=== PATIENT | male | born 1970 | race Caucasian/White ===

== ENCOUNTER 2025-07-12 00:05 | Emergency (ER) | payer SELFPAY ==
--- OUTSIDE RECORDS SUMMARY | 2024-11-30 08:30 | XMS_ITS ---
Author Organization [facility] Address [address] [facility] [place] [address] Care Team Providers Care Gleason Operator Name Role Phone Trung Cramer MD Primary Care Provider Rubén Culver [phone] REASON FOR VISIT 4M F/U PER MARY OV 08/11/24 TD Encounters Encounter Location Date Provider Diagnosis [facility] [address] [place] [address], [place] [address] 11/30/2024 Rubén Cook Plan Of Treatment Next Appt Details Provider Name:Mary finley, 12/24/2025 09:45:00 AM, [address] [place] [address], [place], [address], Provider Name:Rubén Cook , 06/21/2026 01:45:00 PM, [address] [place] [address], [place], [address], Progress Notes * MORRIS PALAFOX RDOB:[birth year] (54 yo M)Acc No.[id number]:11/30/2024 Progress Notes Patient: IDALMIS HANBLU West Provider: Alfonzo Cook MD :1970 A ge:54 Y S ex:Male Date:11/30/2024 Address:[address], [place], [phone] Pcp:Trung Cramer MD Subjective: * Chief Complaints: * 4 M F/U PER MARY OV 08/11/24 TD Billing Information: * Procedure Codes: * Electronic signature of Pricilla Cook MD on 07/12/2025 at 12:15 AM CDT Sign off status: Pending * Provider: Alfonzo Cook MD Date: 0 11/30/2024 Generated for Ab ye/Julia/Foster on: 1 12:15 AM CDT
--- OUTSIDE RECORDS SUMMARY | 2025-01-25 09:20 | XMS_ITS ---
Author Organization [facility] Main Address [place] [address] Care Team Providers Care Head Of Measurement & Insights Name Role Phone GREG MANLEY Primary Care Provider REASON FOR VISIT 6 WK Encounters Encounter Location Date Provider Diagnosis [facility] Main [place] [address] 01/25/2025 GREG MANLEY Plan Of Treatment Next Appt Details Provider Name:EMA ADKINS, 11/07/2025 08:00:00 AM, [address] [place] [address] [place], [address], Progress Notes * Antony LEONARD RDOB:[birth year] (54 yo M)Acc No.[id number]:01/25/2025 Progress Notes Patient: Antony HAN Provider: Jeancarlos MANLEY MD :1970 A ge:54 Y S ex:Male Date:01/25/2025 Address:[address], [id number] Subjective: * Chief Complaints: * 1 . 6 WK. * Medical History: Objective: * Vitals: Assessment: Plan: * Treatment: * Billing Information: * Visit Code: * Procedure Codes: * Electronic signature of DAHLIA MANLEY MD on 07/12/2025 at 12:15 AM CDT Sign off status: Pending * Provider: Jeancarlos MANLEY MD Date: 0 01/25/2025 Generated for Printi ng/Faxing/eTransmitting on: 1 12:15 AM CDT
--- OUTSIDE RECORDS SUMMARY | 2025-06-21 08:45 | XMS_ITS ---
Author Organization [facility] Address [address] [place] [address] Care Team Providers Care Thoroughbred Horse Farm Manager Name Role Phone Trung Cramer MD Primary Care Provider Rubén Culver [phone] Encounters Encounter Location Date Provider Diagnosis [facility] [address] [place] [address], [place] [address] 06/21/2025 Rubén Cook Plan Of Treatment Next Appt Details Provider Name:Mary finley, 12/24/2025 09:45:00 AM, [address] [place] [address], [place], [address], Provider Name:Rubén Cook , 06/21/2026 01:45:00 PM, [address] [place] [address], [place], [address], Progress Notes * MORRIS PALAFOX RDOB:[birth year] (54 yo M)Acc No.[id number]:06/21/2025 Patient: Isamar VILLARREAL MORRIS West Provider: Alfonzo Cook MD :1970 A ge:54 Y S ex:Male Date:06/21/2025 Address:[address], [place], [phone] Pcp:Trung Cramer MD Check In:01:41 PM CSTCheck Nikolas ut:02:31 PM LEATHER SOFTENER Billing Information: * Procedure Codes: * Electronic signature of Pricilla Cook MD on 07/12/2025 at 12:15 AM CDT Sign off status: Pending * Provider: Alfonzo Cook MD Date: 0 06/21/2025 Generated for Ab ye/Julia/Foster on: 1 12:15 AM CDT
--- OUTSIDE RECORDS SUMMARY | 2025-07-02 03:30 | XMS_ITS ---
Author Organization [facility] Main [place] [address] [place] [address] Care Team Providers Care Nurse Sane Name Role Phone GREG MANLEY Primary Care Provider Results Component Value Reference Range Notes Ultrasound: Abdomen Single O rgan Gallbladder Reviewed date:07/03/2025 11:21:11 AM Interpretation: Performing Lab: Notes/Report: REASON FOR VISIT GB US Encounters Encounter Location Date Provider Diagnosis [facility] [place] [address] [place] [address] 07/02/2025 GREG MANLEY RUQ pain R10.11 Assessments Encounter Date Diagnosis (ICD Code) Assessment Notes Treatment Notes Treatment Clinical Notes Section Notes 07/02/2025 RUQ pain (ICD-10 - R10.11) Plan Of Treatment Next Appt Details Provider Name:EMA LUCIANO JED, 11/07/2025 08:00:00 AM, [address] [place] [address] [place], [address], Progress Notes * Antony LEONARD RDOB:[birth year] (54 yo M)Acc No.[id number]:07/02/2025 Gallbladder US Patient: Isamar VILLARREALAntony Provider: Jeancarlos MANLEY MD :1970 A ge:54 Y S ex:Male Date:07/02/2025 Address:[address], [place] Subjective: * Chief Complaints: * 1 . GB US. * Medical History: Objective: * Vitals: Assessment: * Assessment: 1. R UQ pain - R10.11 (Primary) Plan: * Treatment: * Procedure Codes: 7 6705 ECHO EXAM OF ABDOMEN * Billing Information: * Visit Code: * Procedure Codes: 69319 ECHO EXAM OF ABDOMEN. * Electronic signature of ANDR FREDRICK MANLEY MD on 07/12/2025 at 12:14 AM CDT Sign off status: Pending * Provider: Jeancarlos MANLEY MD Date: 0 07/02/2025 Generated for Ab ye/Julia/Theoitting on: 1 12:14 AM CDT
[2025-07-12 00:05] VITALS: BP 124/84; PULSE 101; RESP 16; TEMP 37.4; O2SAT 90; BMI 26.4
--- NOTE | 2025-07-12 00:11 | ECG_ITS ---
[facility] Test Date: 2025-07-12 Pat Name: Antony Leonard Department: Room: Gender: Male Institutional Cook: : 1970 Requested By: Renato Brar Order Number: [id number] Sheridan MD: Clarence Clark M.D. Measurements Intervals [place] Rate: 113 P: 41 WA: 154 QRS: -40 QRSD: 99 T: 75 QT: 321 QTc: 440 Interpretive Statements SINUS TACHYCARDIA WITH OCCASIONAL VENTRICULAR PREMATURE COMPLEXES WITH OCCASIONAL SUPRAVENTRICULAR PREMATURE COMPLEXES LEFT AXIS DEVIATION [QRS AXIS < -30] MODERATE T-WAVE ABNORMALITY, CONSIDER ANTERIOR ISCHEMIA [-0.1+ mV T-WAVE IN V3/V4] No previous ECG available for comparison Electronically Signed On 07-12-2025 18:52:53 CDT by Clarence Clark M.D. [email or web address]
--- OUTSIDE RECORDS SUMMARY | 2025-07-12 00:15 | XMS_ITS | Patient Health Record ---
Author Organization [facility] Main Address [address] [place] [address] Care Team Providers Care Floor Nurse Name Role Phone SINDHUGREG Primary Care Provider Allergies Allergen (clinical drug ingredient) Drug/Non Drug Allergy documented on EMR Reaction Allergy Type Onset Date Status IODINE Unknown Drug Allergy Active Results Component Value Reference Range Notes Ultrasound: Abdomen Single O rgan Gallbladder Reviewed date:07/03/2025 11:21:11 AM Interpretation: Performing Lab: Notes/Report: PSA, Total Reviewed date:06/22/2025 03:35:24 PM Interpretation: Performing Lab: Notes/Report: Draw Location: RF Fasting: Yes Testing performed at: [address] [place] [address] CLIA ID [id number] Lipid Panel Reviewed date:06/22/2025 03:35:24 PM Interpretation: Performing Lab: Notes/Report: Draw Location: [facility] Fasting: Yes Testing performed at: [address] [place] [address] CLIA ID [id number] ALPHA-GAL PANEL Reviewed date:06/29/2025 09:18:58 AM Interpretation: Performing Lab: Notes/Report: Draw Location: [facility] Fasting: Yes [facility] Testing performed at: [facility], [address] [place] [address], [address], Linux Admin: Tate Moss MD [facility] Collection Date/Time: [id number] [facility] Results Received Date/Time: [id number] [facility] Reported Date/Time: [id number] Testing performed at: [facility], [address] [place], [address], Linux Admin: Tate Moss MD [facility] Collection Date/Time: [facility] Results Received Date/Time: [id number] [facility] Reported Date/Time: [id number] Testing performed at: [place], [facility], [address] [place], [address], Linux Admin: Tate Moss MD [facility] Collection Date/Time: [facility] Results Received Date/Time: [id number] [facility] Reported Date/Time: [id number] Testing performed at: [facility],, [address] [place], [address], Linux Admin: Randa Arora MD,PhD,MEAGAN [facility] Collection Date/Time: [facility] Results Received Date/Time: [id number] [facility] Reported Date/Time: [id number] BEEF (F27) IGE <0.10 CLASS 0 TUCKER (F88) IGE <0.10 CLASS 0 PORK (F26) IGE <0.10 CLASS 0 GALACTOSE ALPHA 1,3 GALACTOS E IGE <0.10 <0.10 kU/L Results above 0.1 kU/L indicate an allergen-specific IgE sensitization to sivcpzssy-v-3,3-galactose, and such patients are at risk for delayed allergic reactions following beef, pork, or tucker consumption. Circulating IgE antibodies may remain undetectable despite a convincing clinical history because these antibodies may be directed towards allergens revealed or altered during industrial processing, cooking, or digestion and therefore do not exist in the original food for which the patient is tested. Sometimes individuals diagnosed with chronic urticaria may develop IgE antibodies directed against human thyroglobulin. Such antibodies may cross-react with the bovine thyroglobulin used in ImmunoCAP(R) Allergen o215, alpha-Gal, leading to a false-positive test result. A definitive diagnosis should be based on the evaluation of both clinical and laboratory findings and not on any single diagnostic method. Additional information can be found at [email or web address] Complete Blood Count with Au to Diff (GHP) Reviewed date:06/22/2025 03:35:24 PM Interpretation: Performing Lab: Notes/Report: Draw Location: [facility] Fasting: Yes Testing performed at: [address] [place] [address] CLIA ID [id number] WBC 9.0 4.0-10.8 10^3/uL RBC 5.52 4.40-6.00 10^6/uL HGB 16.7 14.0-18.0 g/dL HCT 49.9 40.0-52.0 % MCV 90 80-97 fL MCH 30 27-33 pg MCHC 34 32-36 g/dL RDW 14.6 6.5-16.0 % PLT 223 150-450 10^3/uL MPV 10.2 7.4-10.5 fL NEUT% 58.2 40.0-80.0 % LYMPH% 25.6 20.0-45.0 % MIXED% 16.2 0.1-10.0 % This is a combi nation of Monocytes, Eosinophils, and Basophils. NEUT# 5.2 1.6-8.7 10^3/uL LYMPH# 2.3 0.8-5.0 10^3/uL MIXED# 1.5 0.1-1.2 10^3/uL This is a co mbination of Monocytes, Eosinophils, and Basophils. Comprehensive Metabolic Pane l (GHP) Reviewed date:06/22/2025 03:35:24 PM Interpretation: Performing Lab: Notes/Report: Draw Location: [facility] Fasting: Yes Testing performed at: [address] [address] CLIA ID [id number] INTERPRETATION Reviewed date:06/29/2025 09:18:58 AM Interpretation: Performing Lab: Notes/Report: Draw Location: [facility] Fasting: Yes [facility] Testing performed at: [place], [facility], [address] [place], [address], Linux Admin: Tate Moss MD [facility] Collection Date/Time: [id number] [facility] Results Received Date/Time: [id number] [facility] Reported Date/Time: [id number] INTERPRETATION SEE NOTE Specific Level of Allergen IGE Class kU/L Specific IGE Antibody ----- --------- 0 <0.10 Absent/Undetectable 0/1 0.10-0.34 Very Low Level 1 0.35-0.69 Low Level 2 0.70-3.49 Moderate Level 3 3.50-17.4 High Level 4 17.5-49.9 Very High Level 5 50-100 Very High Level 6 >100 Very High Level The clinical relevance of allergen results of 0.10-0.34 kU/L are undetermined and intended for specialist use. Allergens denoted with a include results using one or more analyte specific reagents. In those cases, the test was developed and its analytical performance characteristics have been determined by [facility]. It has not been cleared or approved by the U.S. Food and Drug Administration. This assay has been validated pursuant to the CLIA regulations and is used for clinical purposes. TSH, 3rd Gen (GHP) {thyroid} Reviewed date:06/22/2025 03:35:24 PM Interpretation: Performing Lab: Notes/Report: Draw Location: [facility] Fasting: Yes Testing performed at: [address] [address] CLIA ID [id number] TSH3 1.03 0.50-4.30 uIU/mL Reason For Referral Reason screening colonoscop y PT HAS BEEN SCHEDULED Diagnosis 1 Screen for colon can cer (Z12.11) Referral Organization [facility] juanita Main Referring Provider First Name GREG Referring Provider Last Name SINDHU Referring Provider Speciality Family Med icitony Referred Organization [facility] juanita Main Referred Provider EMA TAVERAS Referred Address [address] [place] [address] ,[place], [place],[address], Referred Provider Specialty Family Medic ine Referral Priority Routine Referral Appointment Date 11/07/2025 Medications Medication SIG (Take, Route, Frequency, Duration) Notes Start Date End Date Status Metoprolol Tartrate 50 mg TAKE ONE TABLE T BY MOUTH EVERY DAY; Duration: 90 Active Atorvastatin Calcium 40 mg TAKE ONE TABL ET BY MOUTH EVERY DAY; Duration: 90 Active Aspirin 81 81 MG 1 tablet Orally Once a day; Duration: 90 days Active Ramipril 2.5 MG 1 capsule Orally Onc e a day; Duration: 90 days Active Famotidine 20 mg TAKE 1 TABLET BY BOB TH AT BEDTIME NEEDED; Duration: 90 Active Potassium Chloride Sara ER 20 mEq TAKE ONE TABLET BY MOUTH EVERY DAY; Duration: 90 Active Carvedilol 3.125 MG 1 tablet with food O rally Twice a day Active Entresto 24-26 MG Take 2 in am and 2 A T night Orally Twice a day Active Nitrostat 0.4 MG Dissolve 1 tablet(s) under the tongue may repeat every 5 minutes. Maximum of 3 doses in 15 minutes Sublingual as needed; Duration: 30 days Active Sertraline HCl 50 mg TAKE 1 TABLET BY [facility] ONCE DAILY; Duration: 30 Active Social History Tobacco Use: Social History Observation Description Date Details (start date - stop date) Current Smoker NA - NA Tobacco Use/Smoking Question Answer Notes Tobacco use: current smoker Alcohol Screen (Audit-C) Question Answer Notes Did you have a drink contain ing alcohol in the past year? Yes How often did you have a dri nk containing alcohol in the past year? Monthly or less (1 point) Points 1 Interpretation Negative PHQ-2 Question Answer Notes Little interest or pleasure in doing things? Not at all Feeling down, depressed, or hopeless? Not at all Total Score 0 Problems Problem Type SNOMED Code ICD Code Onset Dates Problem Status W/U Status Risk Notes Problem Systolic heart failure (936806081) Unspecified systolic (congestive) heart failure (I50.20) Active confirmed Problem Generalized anxiety disorder (38657485) Anxiety, generalized (F41.1) Active confirmed Problem Mixed hyperlipidemia (144438967) Mixed hyperlipidemia (E78.2) 015 Active confirmed Devin-119 2830- Problem Essential hypertension (71505761) Essential (primary) hypertension (I10) Active confirmed Problem Low risk (qualifier value) (348279054) Low Risk Level (D07) 017 Active confirmed Devin-119 2830- Problem Gastroesophageal reflux disease (539534675) GERD without esophagitis (K21.9) Active confirmed Problem Acute bronchitis (80378618) Acute bronchitis (466.0) 014 Inactive confirmed Devin-119 2830- Problem Gross hematuria (343018347) Gross hematuria (599.71) 016 Inactive confirmed Devin-119 2830- Problem 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 without angina pectoris (883816490207403) 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) 015 Inactive confirmed Devin-119 2830- Problem Low back pain (708321414) Low back pain (M54.5) 016 Inactive confirmed Devin-119 2830- Problem Calcaneal spur (68120474) Calcaneal spur, unspecified foot (M77.30) 017 Inactive confirmed Devin-119 2830- Problem Renal colic (6291100) Unspecified renal colic (N23) 016 Inactive confirmed Devin-119 2830- Problem Urinary tract infectious disease (disorder) (09492790) Urinary tract infection, site not specified (N39.0) 016 Inactive confirmed Devin-119 2830- Problem Tenderness of right upper quadrant of abdomen (213311013) Right upper quadrant abdominal tenderness (R10.811) 017 Inactive confirmed Devin-119 2830- Problem Generalized abdominal pain (953223682) Generalized abdominal pain (R10.84) 016 Inactive confirmed Devin-119 2830- Problem Gross hematuria (453221438) Gross hematuria (R31.0) 016 Inactive confirmed Devin-119 2830- Problem Closed fracture of calcaneus (06597547) Unspecified fracture of left calcaneus, initial encounter for closed fracture (S92.002A) 017 Inactive confirmed Devin-119 2830- Problem Adult health examination (974487255) Encounter for general adult medical examination without abnormal findings (Z00.00) 016 Inactive confirmed Devin-119 2830- Problem [employer] license medical examination (948792590) Encounter for examination for driving license (Z02.4) 017 Inactive confirmed Devin-119 2830- Problem Screening for malignant neoplasm of prostate (424965700) Encounter for screening for malignant neoplasm of prostate (Z12.5) 017 Inactive confirmed Devin-119 2830- Problem Body mass index 35.00 to 39.99 (912519417277858) Body mass index (BMI) 36.0-36.9, adult (Z68.36) 015 Inactive confirmed Devin-119 2830- Problem Pedal edema (740096752) Pedal edema (782.3) 015 Inactive confirmed Devin-119 2830- Problem 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.9) 015 Inactive confirmed Devin-119 2830- Problem Urticaria (544920252) Urticaria (708.8) 013 Inactive confirmed Devin-119 2830- Problem Sprain of sternum (76720126) Sternum strain, unspecified site (848.40) 014 Inactive confirmed Devin-119 2830- Problem Body mass index 30.00 to 34.99 (640053220515745) BMI 31.0-31.9,adult (Z68.31) Inactive confirmed Problem BMI 30+ - obesity (409035876) BMI 32.0-32.9,adult (Z68.32) Inactive confirmed Problem Angina co-occurrent and due to coronary arteriosclerosis (disorder) (27533785543372925 ) 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 with other forms of angina pectoris (I25.118) 015 Problem resolved confirmed Devin-119 2830- Vital Signs Heart Rate 64 /min 06/20/2025 recheck BP was 146/98 Oximetry 97 % 06/20/2025 recheck BP was 146/98 Blood pressure diastolic 108 mm Hg 06/20/2025 rec heck BP was 146/98 Weight-kg 88.91 kg 06/20/2025 recheck BP was 146/98 Height 66.5 in 06/20/2025 recheck BP was 146/98 Blood pressure systolic 154 mm Hg 06/20/2025 rech marina BP was 146/98 Weight 196 lbs 06/20/2025 recheck BP was 146/98 BMI 31.16 kg/m2 06/20/2025 recheck BP was 146/98 Encounters Encounter Location Date Provider Diagnosis [facility] Main [address] [place] [address] 07/02/2025 GREG MANLEY RUQ pain R10.11 [facility] Main [address] [place] [address] 12/15/2024 GREG MANLEY Essential (primary) hypertension I10 ; Mixed hyperlipidemia E78.2 ; GERD without esophagitis K21.9 ; BMI 31.0-31.9,adult Z68.31 ; Unspecified systolic (congestive) heart failure I50.20 and Anxiety, generalized F41.1 [facility] [place] [address] [place] [address] 06/20/2025 GREG MANLEY Adult wellness visit Z00.00 ; Encounter for screening for depression Z13.31 ; Essential (primary) hypertension I10 ; Anxiety, generalized F41.1 ; Mixed hyperlipidemia E78.2 ; Prostate cancer screening Z12.5 ; BMI 31.0-31.9,adult Z68.31 ; Screen for colon cancer Z12.11 and RUQ pain R10.11 [place] [address] [place] [address] 06/22/2025 GREG MANLEY Essential (primary) hypertension I10 ; RUQ pain R10.11 and Adult wellness visit Z00.00 Assessments Encounter Date Diagnosis (ICD Code) Assessment Notes Treatment Notes Treatment Clinical Notes Section Notes 12/15/2024 Mixed hyperlipidemia (ICD-10 - E78.2) [facility] [id number] chronic and stable continue current regimen 12/15/2024 Essential (primary) hypertension (ICD-10 - I10) HTN chronic and stable continue current regimen 06/20/2025 Encounter for screening for depression (ICD-10 - Z13.31) 06/20/2025 Adult wellness visit (ICD-10 - Z00.00) preventative measures discussed 06/22/2025 Essential (primary) hypertension (ICD-10 - I10) 07/02/2025 RUQ pain (ICD-10 - R10.11) 06/20/2025 Essential (primary) hypertension (ICD-10 - I10) HTN chronic and not controlled at this time. he is seeing Cardiology tomorrow. continue carvedilol and metoprolol and ramipril 06/22/2025 RUQ pain (ICD-10 - R10.11) 12/15/2024 GERD without esophagitis (ICD-10 - K21.9) GERD chronic and stable continue current regimen 12/15/2024 BMI 31.0-31.9,adult (ICD-10 - Z68.31) Diet and exercise discussed as means to achieve healthy weight. 06/20/2025 Anxiety, generalized (ICD-10 - F41.1) anxiety chronic and stable continue sertraline 06/22/2025 Adult wellness visit (ICD-10 - Z00.00) 06/20/2025 Mixed hyperlipidemia (ICD-10 - E78.2) [facility] [id number] HPLD chronic and stable continue atorvastatin 12/15/2024 Unspecified systolic (congestive) heart failure (ICD-10 - I50.20) CHF chronic and stable continue current regimen 12/15/2024 Anxiety, generalized (ICD-10 - F41.1) 06/20/2025 Prostate cancer screening (ICD-10 - Z12.5) 06/20/2025 BMI 31.0-31.9,adult (ICD-10 - Z68.31) Diet and exercise discussed as means to achieve healthy weight. 06/20/2025 Screen for colon cancer (ICD-10 - Z12.11) 06/20/2025 RUQ pain (ICD-10 - R10.11) 12/15/2024 Other preventative measures discussed Plan Of Treatment Pending Test Test Name Order Date EKG, COMPLETE non medicare 04/10/2024 General Health Panel (GHP) (CBC, CMP, TS H) 06/22/2025 General Health Panel (GHP) (CBC, CMP, TS H) 04/11/2024 Next Appt Details Provider Name:EMA ADKINS, 11/07/2025 08:00:00 AM, [address] [place] [address] [place], [address], Insurance Providers Payer Name Payer Address Payer Phone Subscriber Number Group Number Insured Name Patient Relationship to Insured Coverage Start Date Coverage End Date [facility] [address] [place] [address] [id number] Antony Leonard Self - patient is the insured 4 Medical (General) History Medical History History ICD Code PREVENTIVE HEALTH MAINTENANC E ECHOCARDIOGRAM: was last done 12/2013 LVEF: 50-55% CURRENT MEDICAL PROVIDERS:[employer]: Dr. 

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
--- NOTE | 2025-07-12 00:17 | XRR_ITS ---
PROCEDURE INFORMATION: Exam: XR Chest Exam date and time: 07/12/2025 12:31 AM Age: 54 years old Clinical indication: Shortness of breath; Prior surgery; Surgery date: 6+ months; Surgery type: Cabg; Additional info: Shortness of breath, fever TECHNIQUE: Imaging protocol: Radiologic exam of the chest. Views: 1 view. COMPARISON: No relevant prior studies available. FINDINGS: Lungs: Unremarkable. No consolidation. Pleural spaces: Unremarkable. No pleural effusion. No pneumothorax. Heart/Mediastinum: Unremarkable. No cardiomegaly. Bones/joints: Postoperative changes from median sternotomy are noted. Sternotomy wires are well aligned. XR/XR chest 1V portable [id number] IMPRESSION: No acute findings.
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
[2025-07-12 00:23] LABS: Hematocrit 48.8 % (37-53); Hemoglobin 16.90 g/dL (11.27-16.99); Mean Corpuscular HGB Conc 34.6 g/dL (30-55); Mean Corpuscular Hemoglobin 30.3 pg (27-33); Mean Corpuscular Volume 87.5 fl (82-101); Nucleated Red Blood Cells % 0 %; Platelet Count 244 10^3/cmm (157-399); Red Blood Count 5.58 10^6/uL (3.85-5.65); White Blood Count 14.77 10^3/uL (3.29-11.43)
[2025-07-12 00:30] VITALS: BP 126/89; PULSE 87; RESP 20; O2SAT 93
[2025-07-12] MEDS: acetaminophen 1,000 MG/100 ML PIGGYBACK 400 MG IV (00:30)
[2025-07-12 00:45] LABS: Alanine Aminotransferase 19 U/L (0-41); Albumin Level 4.1 g/dL (3.5-5.2); Alkaline Phosphatase 103 U/L (40-130); Anion Gap 21.0 (5-19); Aspartate Amino Transferase 22 U/L (0-40); Blood Urea Nitrogen 9 mg/dL (6-20); Calcium 8.6 mg/dL (8.5-10.5); Carbon Dioxide 19 mmol/L (22-29); Chloride 96 mmol/L (98-107); Creatinine Clr Calc Pharmacy 90.0349; Globulin 3.8 g/dL (1.3-4.6); Glucose 127 mg/dL (65-115); Osmolality Calculated 276 mOsm/kg (285-295); Potassium 3.0 mmol/L (3.5-5.1); Sodium 133 mmol/L (136-145); Total Protein 7.9 g/dL (6.6-8.7)
[2025-07-12] MEDS: tetanus-dipt-pertussis 0.5 mL SDV IM (01:00)
[2025-07-12 01:28] LABS: INR 1.17 (0.8-1.2); Prothrombin Time 15.70 SECONDS (12.1-14.9)
[2025-07-12 01:34] LABS: Lactic Sepsis W/Reflex 1.0 mmol/L (0.5-2.2)
[2025-07-12 01:40] LABS: Respiratory Syncytial Virus Ce NEGATIVE (Negative); SARS-CoV-2 PCR NEGATIVE (Negative)
[2025-07-12 02:16] VITALS: BP 147/93; PULSE 97; RESP 16; O2SAT 94
[2025-07-12 03:58] VITALS: BP 160/91; PULSE 85; RESP 18; O2SAT 94
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
== END 2025-07-12 04:00 | disposition home or self-care (01) ==
PROVIDERS: Emergency Provider Student in an Organized Health Care Education/Training Program; Family Provider Family Medicine; PCP Family Medicine
DX: S01.01XA Laceration without foreign body of scalp, initial encounter (principal); R50.9 Fever, unspecified; R55 Syncope and collapse; Z11.52 Encounter for screening for COVID-19; V89.2XXA Person injured in unspecified motor-vehicle accident, traffic, initial encounter
CPT/HCPCS: 36415; 70450; 71045; 80053; 83605; 85025; 85610; 87040; 87637; 90715; 93005; 96361; 96374; 99285; J0131; J7030